=== PATIENT | male | born 1965 | race Two or more races ===

== ENCOUNTER 2017-11-06 17:44 | Emergency (ER) | payer MEDICAID ==
[~2017-11-06] VITALS: Ht 167.6 cm; Wt 83.9 kg
[2017-11-06] MEDS ORDERED: LISI40TA4 PO (17:54)
--- NOTE | 2017-11-06 19:06 | NUR ---
Still for MD to evaluate, endorsed to LUCIANA chong
--- NOTE | 2017-11-06 19:36 | NUR ---
Patient discharged to home in stable conditon. Written and verbal after care instructions given. Patient verbalizes understanding of instructions.
== END 2017-11-06 19:37 | disposition home or self-care (01) ==
LOC: ER 17:45
DX: H11.31 Conjunctival hemorrhage, right eye (principal); I10 Essential (primary) hypertension; E78.5 Hyperlipidemia, unspecified
CPT/HCPCS: A4663